=== PATIENT | male | born 2000 | race Caucasian/White ===

== ENCOUNTER 2020-08-23 13:59 | Inpatient (IN) ==
--- NOTE | 2020-08-23 15:02 | Emergency Department Note ---
Impression & Plan Rhabdomyolysis ED Provider Note Provider: Paul Valero MD DATE OF SERVICE: 08/23/2020 CHIEF COMPLAINT: Blood in abnormality, muscle aches HISTORY OF PRESENT ILLNESS: Patient is a otherwise healthy 19-year-old gentleman presenting referred by [facility] due to abnormal blood work. Patient states he has been working out fairly heavily and developed some pain and swelling in his left elbow and left upper arm. Patient reports that he started urinating a little blood yesterday morning and went to the [facility]. [place] [address]. States he started lifting weights on Saturday and was using some protein creatinine pow rody. Denies a history of significant weight lifting or rhabdomyolysis in the past. Some mild swelling and tenderness to the left elbow but he states is fairly minimal. States he has not been eating the best the last day but has been trying to hydrate but the urine still seems quite off particular last night so went to [facility] today. Denies any other trauma. Denies fever, URI symptoms, shortness of breath, nausea, or vomiting. REVIEW OF SYSTEMS: A total of 10 review of systems was obtained and negative except as stated above in the HPI. PAST MEDICAL HISTORY: As noted above MEDICATIONS: Denies SOCIAL HISTORY: [employer] student PHYSICAL EXAM: GENERAL: alert and oriented in no acute distress on stretcher Head: normocephalic and atraumatic EYES: No injection, discharge or icterus. NECK: Trachea midline. ENT: Mucous membranes pink and moist. LUNGS: Airway patent. No retractions. Breath sounds clear with good air entry bilaterally. HEART: Regular rate and rhythm. No chest wall tenderness ABDOMEN: Soft and non-tender, without guarding or rebound. SKIN: Acyanotic, warm, dry, without rashes EXTREMITIES: Without swelling, tenderness or deformity except for some very slight swelling with soft compartments of the left elbow and left forearm. NEUROLOGICAL: No focal deficits. No aphasia. No facial droop or slurred speech. Normal strength and tone in the extremities. Sensation to gross touch normal. Ambulatory. EKG: Sinus rhythm with sinus arrhythmia. 66 bpm. Right axis noted. No PVC. No acute ST segment elevation or depression. Patient's laboratory studies and imaging reviewed. Differential includes Infection, dehydration, metabolic abnormality, hypo/hyperglycemia, electrolyte disturbance, anemia, hypoxia, cardiac sources, intracerebral event, toxicologic, neurologic, as well as other pathologies. IMPRESSION/MEDICAL DECISION MAKING: Patient presents complaining of some muscle ache predominately left upper extremity after working out noted to have some dark urine yesterday seen by S with evidence of rhabdomyolysis and last for repeat labs were ordered and started on hydration intravenously here. No significant trauma and doubt compartment syndrome. Believe likely the "blood "in the dark urine he noted likely related to his rhabdo. Given his significant elevation though his age without significant bruits believe observation overnight with continued IV hydration would be reasonable prevent any renal injury. Discussed with the patient. Hospitalist to be contacted. Blood work today without significant leukocytosis or anemia. Transaminitis is noted likely consistent with his rhabdomyolysis have a low suspicion for acute hepatitis given the clinical picture. Urinalysis out signs of infection. Covid test was negative. Some delay in getting the CPK due to the elevation. CPK elevation greater than 80,000. Again did receive IV fluid hydration here. Patient agreed the plan for observation hydration given his rhabdomyolysis. The hospitalist contacted. DIAGNOSIS: Rhabdomyolysis DISPOSITION: Hospitalist will evaluate Patient was agreeable with this plan. Past Med/Surg History Social History Smoking Status: Never smoker Hx Alcohol Use: No Hx Substance Use: No Preferred Language: American Communication Ability: Effective Beliefs That Will Affect Care: None Current Living Situation Comment: roommate off campus Other Information That Helps Us Care for You: No Feels Safe at Home: Yes Safety Concerns: Feels Safe At This Time Allergies Allergies Allergy/AdvReac Type Severity Reaction Status Date / Time No Known Allergies Allergy Verified 08/23/20 16:23 Home Meds Home Medications Medication Instructions Recorded Confirmed No Known Home Medications 08/23/20 08/23/20 Results & Data (ED) Vital Signs Vital Signs - 24 hr 08/23/20 14:03 08/23/20 15:35 08/23/20 17:10 Temperature 37.1 C Temperature Source Temporal Artery Scan Pulse Rate 78 Pulse Rate [Apical] 58 L 74 Respiratory Rate 16 16 16 Respiratory Effort / Characteristics Non-Labored Spontaneous Respiratory Depth Normal Blood Pressure 153/88 H Blood Pressure [Right Arm] 122/81 120/69 Blood Pressure Mean 109 Blood Pressure Mean [Right Arm] 94 86 Blood Pressure Position Sitting Pulse Oximetry 96 96 Oxygen Delivery Method Room Air Room Air Sepsis Recent Fever Within 48 Hours No Sepsis New/Unexplained Change in Mental Status No Sepsis Action Taken by Nursing No Action Required Laboratory Data Result diagrams: 08/23/20 15:30 08/23/20 15:30 Lab Results 08/23/20 08/23/20 08/23/20 Range/Units 15:20 15:25 15:25 WBC (4.8-10.8) K/uL RBC (4.7-6.1) M/uL Hgb (14.0-18.0) g/dL Hct (42-52) % MCV (80-100) fL MCH (25-34) pg MCHC (32-36) g/dL RDW Std Deviation (36.4-46.3) fL RDW Coeff of Mary Jane (11.5-14.5) % Plt Count (130-400) K/uL MPV (7.4-10.4) fL Immature Gran % (Auto) % Neut % (Auto) % Lymph % (Auto) % [place] % (Auto) % Eos % (Auto) % Baso % (Auto) % Neut # (Auto) (1.4-6.5) K/uL Lymph # (Auto) (1.2-3.4) K/uL [place] # (Auto) (0.11-0.59) K/uL Eos # (Auto) (0-0.5) K/uL Baso # (Auto) (0-0.2) K/uL Immature Gran # (Auto) (0.00-0.02) K/uL Sodium (136-145) mmol/L Potassium (3.5-5.1) mmol/L Chloride (98-107) mmol/L Carbon Dioxide (21-32) mmol/L Anion Gap (3-11) BUN (7-18) mg/dl Creatinine (0.6-1.4) mg/dl Est Cr Clr Drug Dosing ml/min Est GFR ( Amer) Est GFR (Non-Af Amer) BUN/Creatinine Ratio (10-20) Glucose (70-99) mg/dl Calcium (8.5-10.1) mg/dl Magnesium (1.8-2.4) mg/dl Total Bilirubin (0.2-1) mg/dl AST (15-37) U/L ALT (12-78) U/L Alkaline Phosphatase (45-117) U/L Total Creatine Kinase (39-308) U/L Total Protein (6.4-8.2) gm/dl Albumin (3.4-5.0) gm/dl Globulin (2.5-4.0) gm/dl Albumin/Globulin Ratio (0.9-2) Urine Color Yellow Urine Appearance Clear (Clear) Urine pH 6.5 (4.5-7.5) Ur Specific [place] 1.011 (1.000-1.030) Urine Protein 2+ H (Negative) Urine Glucose (UA) Negative (Negative) Urine Ketones Negative (Negative) Urine Blood 3+ H (Negative) Urine Nitrite Negative (Negative) Urine Bilirubin Negative (Negative) Urine Urobilinogen Negative (Negative) Ur Leukocyte Esterase Negative (Negative) Urine RBC 0-4 (0-4) /hpf Urine WBC 0-5 (0-5) /hpf Ur Epithelial Cells 0-5 (0-5) /lpf Urine Bacteria Negative (Negative) COVID-19 [facility] SARS-[facility]-2, RNA, NAAT NEGATIVE (NEGATIVE) 08/23/20 08/23/20 Range/Units 15:30 15:30 WBC 10.09 (4.8-10.8) K/uL RBC 4.88 (4.7-6.1) M/uL Hgb 15.5 (14.0-18.0) g/dL Hct 44.7 (42-52) % MCV 91.6 (80-100) fL MCH 31.8 (25-34) pg MCHC 34.7 (32-36) g/dL RDW Std Deviation 41.7 (36.4-46.3) fL RDW Coeff of Mary Jane 12.4 (11.5-14.5) % Plt Count 285 (130-400) K/uL MPV 9.9 (7.4-10.4) fL Immature Gran % (Auto) 0.4 % Neut % (Auto) 78.8 % Lymph % (Auto) 13.5 % [place] % (Auto) 5.4 % Eos % (Auto) 1.7 % Baso % (Auto) 0.2 % Neut # (Auto) 7.96 H (1.4-6.5) K/uL Lymph # (Auto) 1.36 (1.2-3.4) K/uL [place] # (Auto) 0.54 (0.11-0.59) K/uL Eos # (Auto) 0.17 (0-0.5) K/uL Baso # (Auto) 0.02 (0-0.2) K/uL Immature Gran # (Auto) 0.04 H (0.00-0.02) K/uL Sodium 139 (136-145) mmol/L Potassium 3.8 (3.5-5.1) mmol/L Chloride 103 (98-107) mmol/L Carbon Dioxide 32 (21-32) mmol/L Anion Gap 4.0 (3-11) BUN 9 (7-18) mg/dl Creatinine 0.96 (0.6-1.4) mg/dl Est Cr Clr Drug Dosing 80.4 ml/min Est GFR ( Amer) 132.3 Est GFR (Non-Af Amer) 114.1 BUN/Creatinine Ratio 9.9 L (10-20) Glucose 105 H (70-99) mg/dl Calcium 9.4 (8.5-10.1) mg/dl Magnesium 2.4 (1.8-2.4) mg/dl Total Bilirubin 0.9 (0.2-1) mg/dl AST 1636 H (15-37) U/L ALT 442 H (12-78) U/L Alkaline Phosphatase 96 (45-117) U/L Total Creatine Kinase 10811 H (39-308) U/L Total Protein 7.9 (6.4-8.2) gm/dl Albumin 4.3 (3.4-5.0) gm/dl Globulin 3.6 (2.5-4.0) gm/dl Albumin/Globulin Ratio 1.2 (0.9-2) Urine Color Urine Appearance (Clear) Urine pH (4.5-7.5) Ur Specific [place] (1.000-1.030) Urine Protein (Negative) Urine Glucose (UA) (Negative) Urine Ketones (Negative) Urine Blood (Negative) Urine Nitrite (Negative) Urine Bilirubin (Negative) Urine Urobilinogen (Negative) Ur Leukocyte Esterase (Negative) Urine RBC (0-4) /hpf Urine WBC (0-5) /hpf Ur Epithelial Cells (0-5) /lpf Urine Bacteria (Negative) COVID-19 Eval Order SARS-CoV-2, RNA, NAAT (NEGATIVE) Administered Medications Sodium Chloride (Nss 1000ml) 1,000 mls @ 200 mls/hr IV .Q5H NATHAN Stop: 09/22/20 18:00 Last Admin: 08/23/20 21:37 Dose: 200 mls/hr Documented by: [id number] Infusion: 08/23/20 21:37 Dose: 200 mls/hr Documented by: [id number] Admin: 08/23/20 18:25 Dose: 200 mls/hr Documented by: [id number] Discontinued Medications Lactated Ringer's (Lr) 1,000 mls @ 999 mls/hr IV .Q1H1M ONE Stop: 08/23/20 16:06 Last Infusion: 08/23/20 16:58 Dose: 0 mls/hr Documented by: [id number] Admin: 08/23/20 15:48 Dose: 999 mls/hr Documented by: [id number] Lactated Ringer's (Lr) 1,000 mls @ 125 mls/hr IV .Q8H [facility] Stop: 09/22/20 17:59 Last Admin: 08/23/20 19:05 Dose: Not Given Documented by: [id number] Sodium Chloride (Nss 1000ml) 1,000 mls @ 999 mls/hr IV .Q1H1M ONE Stop: 08/23/20 20:20 Last Infusion: 08/23/20 21:37 Dose: 0 mls/hr Documented by: [id number] Admin: 08/23/20 19:31 Dose: 999 mls/hr Documented by: [id number] Sodium Chloride (Nss 1000ml) 1,000 mls @ 999 mls/hr IV .Q1H1M ONE Stop: 08/23/20 21:41 Last Admin: 08/23/20 22:50 Dose: Not Given Documented by: [id number] Discharge Plan Visit Data Chief Complaint: Abnormal Labs/Diagnostic Testing Stated Complaint: 38,000 CK LEVEL - REFERRED BY [facility] ED Provider: Paul Valero Discharge Problem: Rhabdomyolysis Patient Disposition: Admitted As Inpatient Discharge Instructions Interventions: ED Discharge Assessment Last Done: 08/23/20 20:04 Discharge Problem: Rhabdomyolysis Qualifiers: Rhabdomyolysis type: non-traumatic Qualified Code(s): M62.82 - Rhabdomyolysis
[2020-08-23] MEDS ORDERED: LACTATED RINGER'S 1,000 ML IV ONE (15:06)
[2020-08-23 15:42] LABS: Basophils # (auto) 0.02 K/uL (0-0.2); Basophils % (auto) 0.2 %; Eosinophils # (auto) 0.17 K/uL (0-0.5); Eosinophils % (auto) 1.7 %; Hematocrit (blood only) 44.7 % (42-52); Hemoglobin 15.5 g/dL (14.0-18.0); Immature Granulocytes # (auto) 0.04 K/uL (0.00-0.02); Immature Granulocytes % (auto) 0.4 %; Lymphocytes # (auto) 1.36 K/uL (1.2-3.4); Lymphocytes % (auto) 13.5 %; Mean Corpuscular Hemoglobin 31.8 pg (25-34); Mean Corpuscular Hgb Conc 34.7 g/dL (32-36); Mean Corpuscular Volume 91.6 fL (80-100); Mean Platelet Volume 9.9 fL (7.4-10.4); Monocytes # (auto) 0.54 K/uL (0.11-0.59); Monocytes % (auto) 5.4 %; Neutrophils # (auto) 7.96 K/uL (1.4-6.5); Neutrophils % (auto) 78.8 %; Platelet Count 285 K/uL (130-400); RDW Coefficient of Variation 12.4 % (11.5-14.5); RDW Standard Deviation 41.7 fL (36.4-46.3); Red Blood Count 4.88 M/uL (4.7-6.1); White Blood Count 10.09 K/uL (4.8-10.8)
[2020-08-23 16:00] LABS: Albumin Level 4.3 gm/dl (3.4-5.0); BUN Creatinine Ratio 9.9 (10-20); Calcium 9.4 mg/dl (8.5-10.1); Creatinine Clr Calc Pharmacy 80.4 ml/min; Est GFR (African American) 132.3; Est GFR (Non-African American) 114.1; Magnesium 2.4 mg/dl (1.8-2.4); Potassium 3.8 mmol/L (3.5-5.1)
[2020-08-23 16:05] LABS: Appearance Urine Clear (Clear); Bilirubin Urine Negative (Negative); Blood Urine 3+ (Negative); Color Urine Yellow; Glucose Urine UA Negative (Negative); Ketones Urine Negative (Negative); Leukocyte Esterase Urine Negative (Negative); Nitrite Urine Negative (Negative); Protein Urine 2+ (Negative); Specific Gravity Urine 1.011 (1.000-1.030); Urobilinogen Urine Negative (Negative); pH Urine 6.5 (4.5-7.5)
[2020-08-23 16:27] LABS: Albumin Globulin Ratio 1.2 (0.9-2); Bilirubin,Total 0.9 mg/dl (0.2-1); Globulin 3.6 gm/dl (2.5-4.0); Total Protein 7.9 gm/dl (6.4-8.2)
[2020-08-23 16:40] LABS: Bacteria Urine Negative (Negative); Epithelial Cell Urine 0-5 /lpf (0-5); RBC Urine 0-4 /hpf (0-4); WBC Urine 0-5 /hpf (0-5)
[2020-08-23] MEDS ORDERED: LACTATED RINGER'S 1,000 ML IV SCH (18:00)
--- NOTE | 2020-08-23 18:16 | History & Physical Report ---
Date of Service August 23, 2020 Assessment & Plan (1) Rhabdomyolysis: Total 3L fluid bolus in ER. Continue on NSS 200ml/hr overnight. Repeat CK and BMP with AM labs. Admission and Anticipated Discharge Date Admission Date: August 23, 2020 History of Present Illness Chief Complaint: Abnormal labs Primary Care Provider: [facility] Aj Berry is a 19-year-old male who presents to the ER on the advice of [facility] due to a CK level of 38,000 taken this morning. He reports having red urine since yesterday morning. Pain and swelling to left elbow and upper arm with muscle aches after working out on Saturday while also started taking protein/creatine powder. 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 No significant history of rhabdomyolysis. In the ER repeat creatinine kinase was 85,668. He was referred to medicine for admission and ongoing management of rhabdomyolysis. No concern for compartment syndrome and creatinine currently normal. Allergies Allergy/AdvReac Type Severity Reaction Status Date / Time No Known Allergies Allergy Verified 08/23/20 16:23 Home Medications Medication Instructions Recorded Confirmed Type No Known Home Medications 08/23/20 08/23/20 History Past Med/Surg History Medical History (Updated 08/24/20 @ 10:56 by Roverto Langley MD) No pertinent past medical history Social History Smoking Status: Never smoker Hx Alcohol Use: No Hx Substance Use: No Preferred Language: Tanzanian Communication Ability: Effective Beliefs That Will Affect Care: None Current Living Situation Comment: roommate off campus Other Information That Helps Us Care for You: No Feels Safe at Home: Yes Safety Concerns: Feels Safe At This Time Review of Systems Review of Systems: All systems reviewed & are unremarkable except as noted in HPI & below Physical Exam Constitutional: WD/WN, vitals as above Eyes: + anicteric sclerae; normal pupil size ENMT: external ear and nose normal, oropharynx normal Neck: trachea midline Respiratory: normal respiratory effort, lungs clear to auscultation Cardiovascular: RRR, no murmur, no edema Gastrointestinal (Abdomen): normal bowel sounds, soft, nontender, no hepatosplenomegaly Musculoskeletal: no cyanosis or clubbing, extremities motor strength 5/5 Extremities: extremities normal to inspection (Mild pain over proximal brachioradialis) Skin: no rashes, warm and dry Neurologic: moves all extremities and awake; not confused Results & Data Results & Data ([facility]) Vital Signs (Past 12 Hours) Vital Signs Temp Pulse Pulse Resp BP BP Pulse Ox 08/23/20 17:10 74 16 120/69 08/23/20 15:35 58 L 16 122/81 96 08/23/20 14:03 37.1 C 78 16 153/88 H 96 Code Status & VTE Plan Code Status Full VTE Prophylaxis Plan VTE Prophylaxis will be ordered: No PG Care Time/CCT Total # of Minutes Spent Total Time Spent with Patient: Total time spent is greater than 50% in coordination of care (as documented) at patient's floor/unit and/or counseling patient: Coding Level of Care Code 98486 Initial Inpt Care Lvl 2 Diagnoses Rhabdomyolysis M62.82 Rhabdomyolysis type: non-traumatic (1) Rhabdomyolysis Rhabdomyolysis type: non-traumatic Qualified Code(s): M62.82 - Rhabdomyolysis
[2020-08-23] MEDS: SODIUM CHLORIDE 0.9% 1000ML 1,000 ML IV SCH ×2 (18:25→21:37)
[2020-08-23] MEDS ORDERED: SODIUM CHLORIDE 0.9% 1000ML 1,000 ML IV ONE ×2 (19:20→20:41)
[2020-08-24] MEDS: SODIUM CHLORIDE 0.9% 1000ML 1,000 ML IV SCH ×4 (02:39→19:30)
[2020-08-24 06:26] LABS: Basophils # (auto) 0.03 K/uL (0-0.2); Basophils % (auto) 0.4 %; Eosinophils # (auto) 0.27 K/uL (0-0.5); Eosinophils % (auto) 3.3 %; Hematocrit (blood only) 37.3 % (42-52); Immature Granulocytes # (auto) 0.03 K/uL (0.00-0.02); Immature Granulocytes % (auto) 0.4 %; Lymphocytes # (auto) 2.59 K/uL (1.2-3.4); Lymphocytes % (auto) 31.7 %; Mean Corpuscular Hemoglobin 32.1 pg (25-34); Mean Corpuscular Hgb Conc 34.9 g/dL (32-36); Mean Corpuscular Volume 92.1 fL (80-100); Mean Platelet Volume 9.7 fL (7.4-10.4); Monocytes # (auto) 0.52 K/uL (0.11-0.59); Monocytes % (auto) 6.4 %; Neutrophils # (auto) 4.74 K/uL (1.4-6.5); Neutrophils % (auto) 57.8 %; Platelet Count 260 K/uL (130-400); RDW Coefficient of Variation 12.6 % (11.5-14.5); RDW Standard Deviation 42.7 fL (36.4-46.3); Red Blood Count 4.05 M/uL (4.7-6.1); White Blood Count 8.18 K/uL (4.8-10.8)
--- NOTE | 2020-08-24 06:37 | Electrocardiogram Report ---
Test Reason : Blood Pressure : / mmHG Vent. Rate : 066 BPM Atrial Rate : 078 BPM P-R Int : 176 ms QRS Dur : 102 ms QT Int : 400 ms P-R-T Axes : 062 098 064 degrees QTc Int : 419 ms Sinus rhythm with marked sinus arrhythmia Rightward axis Incomplete right bundle branch block Borderline ECG No previous ECGs available Confirmed by Donta Benson ([id number]) on 08/24/2020 6:37:24 AM Referred By: ER Confirmed By:Donta Benson
[2020-08-24 06:57] LABS: BUN Creatinine Ratio 10.5 (10-20); Blood Urea Nitrogen 8 mg/dl (7-18); Calcium 8.5 mg/dl (8.5-10.1); Carbon Dioxide 29 mmol/L (21-32); Chloride 112 mmol/L (98-107); Creatinine Clr Calc Pharmacy 132.1 ml/min; Est GFR (African American) > 150.0; Glucose 84 mg/dl (70-99); Potassium 3.6 mmol/L (3.5-5.1); Sodium 144 mmol/L (136-145)
[2020-08-24 10:05] LABS: Creatine Kinase 59740 U/L (39-308)
--- NOTE | 2020-08-24 13:24 | Hospitalist Progress Note ---
Date of Service August 24, 2020 Assessment & Plan (1) Rhabdomyolysis: Traumatic rhabdomyolysis from weightlifting. Continue IV fluids but taper rate down to 150. Serial lab studies. Monitor renal function daily . CK level has decreased from admission Disposition: Eventual discharge to home when CK is down to a more reasonable level and renal dysfunction is no longer a concern Admission and Anticipated Discharge Date Admission Date: August 23, 2020 Subjective Alert. No distress. Diffuse left arm tenderness with mild edema above and below the elbow. This appears to be related to trauma from excessive weight lifting. CK is markedly elevated but trending downward. Renal function stable. Liver function tests are also elevated and will be followed Review of Systems Review of Systems: All systems reviewed & are unremarkable except as noted in HPI & below Physical Exam Physical Exam: General-alert and oriented x3, no fevers, no chills HEENT-head atraumatic and normocephalic, pupils equal and reactive to light, extraocular muscles intact Neck-no lymphadenopathy or thyromegaly, trachea midline Chest-clear to auscultation percussion. No rales wheezing or rhonchi Cardiac-regular rate and rhythm, normal S1 and S2, no murmurs Abdomen-normal bowel sounds, nontender, no hepatosplenomegaly Extremities-no cyanosis, clubbing, or edema Neuro-cranial nerves II through XII intact, motor and sensory function within normal limits, strength symmetrical 5/5, no focal deficits Psych-normal affect, normal mood Musculoskeletalleft arm tenderness above and below the elbow with mild edema Results & Data Results & Data ([facility]) Vital Signs (Past 12 Hours) Vital Signs Temp Pulse Resp BP Pulse Ox 08/24/20 07:32 36.5 C 74 16 111/62 96 Laboratory Results 08/24/20 05:48 08/24/20 05:48 PG Care Time/CCT Total # of Minutes Spent Total Time Spent with Patient: Total time spent is greater than 50% in coordination of care (as documented) at patient's floor/unit and/or counseling patient: Coding Level of Care Code 39280 Subseq Hosp Care Lvl 2 Diagnoses Rhabdomyolysis M62.82 Rhabdomyolysis type: non-traumatic (1) Rhabdomyolysis Rhabdomyolysis type: non-traumatic Qualified Code(s): M62.82 - Rhabdomyolysis
[2020-08-25] MEDS: SODIUM CHLORIDE 0.9% 1000ML 1,000 ML IV SCH ×3 (02:12→14:44)
[2020-08-25 07:45] LABS: Alanine Aminotransferase 353 U/L (12-78); Albumin Level 3.3 gm/dl (3.4-5.0); Aspartate Aminotransferase 878 U/L (15-37); BUN Creatinine Ratio 7.5 (10-20); Blood Urea Nitrogen 6 mg/dl (7-18); Calcium 8.5 mg/dl (8.5-10.1); Carbon Dioxide 27 mmol/L (21-32); Chloride 111 mmol/L (98-107); Est GFR (African American) > 150.0; Est GFR (Non-African American) 130.9; Glucose 81 mg/dl (70-99); Potassium 3.4 mmol/L (3.5-5.1); Sodium 143 mmol/L (136-145)
[2020-08-25 09:22] LABS: Creatine Kinase 35940 U/L (39-308)
[2020-08-25 09:53] LABS: Albumin Globulin Ratio 1.2 (0.9-2); Alkaline Phosphatase 73 U/L (45-117); Bilirubin,Total 0.7 mg/dl (0.2-1); Globulin 2.7 gm/dl (2.5-4.0)
[2020-08-25] MEDS ORDERED: POTASSIUM CHLORIDE CRTAB 20 MEQ TABCR PO STA (14:27)
--- NOTE | 2020-08-30 09:59 | Discharge Summary ---
Date of Service August 25, 2020 Admission HPI Per Admitting Provider Aj Kristi is a 19-year-old male who presents to the ER on the advice of [facility] due to a CK level of 38,000 taken this morning. He reports having red urine since yesterday morning. Pain and swelling to left elbow and upper arm with muscle aches after working out on Saturday while also started taking protein/creatine powder. 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 No significant history of rhabdomyolysis. In the ER repeat creatinine kinase was 85,668. He was referred to medicine for admission and ongoing management of rhabdomyolysis. No concern for compartment syndrome and creatinine currently normal. Principal Diagnosis Rhabdomyolysis Discharge Exam General-alert and oriented x3, no fevers, no chills HEENT-head atraumatic and normocephalic, pupils equal and reactive to light, extraocular muscles intact Neck-no lymphadenopathy or thyromegaly, trachea midline Chest-clear to auscultation percussion. No rales wheezing or rhonchi Cardiac-regular rate and rhythm, normal S1 and S2, no murmurs Abdomen-normal bowel sounds, nontender, no hepatosplenomegaly Extremities-no cyanosis, clubbing, or edema Neuro-cranial nerves II through XII intact, motor and sensory function within normal limits, strength symmetrical 5/5, no focal deficits Psych-normal affect, normal mood Musculoskeletalleft arm tenderness above and below the elbow with mild edema Discharge Data Allergies Allergy/AdvReac Type Severity Reaction Status Date / Time No Known Allergies Allergy Verified 08/23/20 16:23 Consultations 08/23/20 17:55 ED Decision to Admit Stat Hospital Course (1) Rhabdomyolysis: Traumatic rhabdomyolysis from weightlifting. CK improved from admission with IVF. Given how myoglobin has a shorter half life and patient is now asymptomatic. It is safe to discharge patient. Patient will followup with [facility]. will recommend checking blood work in 1 week. Total Time Total Time Spent Total Time Spent (In Minutes): 32 Total Time Includes: Examination of the Patient, Discharge Planning and Medication Reconciliation Discharge Plan Discharge Items Patient Disposition: Home - Self-Care Reason For Visit: RHABDOMYOLYSIS Discharge Diagnosis: Rhabdomyolysis Activity: Resume your previous activity Non-emergency contact: Primary Care Provider Call non-emergency contact if: you have any medication questions Follow-up/Referrals: [facility] [Primary Care Provider] - 09/01/20 10:40 am Diet: Regular Addtl Attending Provider Instructions: You have been hospitalized for an acute medical problem. During your stay at [facility], we have made an effort to correct the problem that brought you to the hospital while keeping you as comfortable as possible. Medications were used to bring your condition under control and your discharge instructions will include directions for any medications you should take after leaving the hospital. Please make sure you see your Primary Care Provider as part of your follow up plan. Will recommend that you followup with [facility] in 1 week to reassess blood work. Continue to drink water and goal is to have urine clear. Do not work out for next 2 weeks. Pending Studies at Discharge: No Stand-Alone Forms: My [facility], Smoking Cessation Medications and DC Order Prescriptions: No Action No Known Home Medications RF: 0 Discharge Orders: Discharge Order (Routine); Ordered 08/25/20 Ordered By: Jonas Huerta Admission Data Admit Date/Time: 08/23/20 18:05 Attending Provider: Jonas Huerta Admit Provider: Roverto Langley Primary Care Provider: [facility] Other Providers: Roverto Langley Other Interventions: Discharge Summary Assessment (RN) Last Done: 08/25/20 15:40 Coding Level of Care Code D/C Day Management >30 mins Diagnoses Rhabdomyolysis M62.82 Rhabdomyolysis type: non-traumatic
== END 2020-08-25 16:30 | disposition home or self-care (01) | DRG 566 ==
LOC: ED 13:59 → 3W 18:05 → SUATTDRO 18:05 → 3W 20:04